=== PATIENT | female | born 1975 | race Caucasian/White ===

== ENCOUNTER → 2016-04-11 | Outpatient (CLI) | payer BC ==
--- NOTE | 2016-04-11 12:22 | KCIC ---
Bilateral digital diagnostic mammograms with CAD: HISTORY Followup nodules. COMPARISON Comparison is made to previous examinations dated back to 03/26/2013. FINDINGS Breast density category D. The skin and nipples show no abnormalities. No abnormal lymph nodes are seen in the axilla. The breast parenchyma is extremely dense. There continues to be some parenchymal asymmetry in the region of the left axillary tail of Gross which has not changed. There are no new dominant masses, suspicious calcifications or architectural distortions. IMPRESSION No evidence of malignancy. Ultrasound to follow. This study was interpreted with the benefit of Computerized Aided Detection (CAD). Mammography is not 100% sensitive in detecting breast cancer. Therefore, a self breast exam and a clinical breast exam are very important. A negative mammogram does not negate a clinically suspicious finding and should not result in a delay in biopsying a clinically suspicious abnormality. BI-RADS category 0: Incomplete. Ultrasound to follow. Left breast ultrasound: Comparison is made to previous study dated 11/10/2015. Ultrasound examination was performed of the left breast and axilla. There continue to be some benign cystic lesions in the 6 o'clock position 4 centimeters from the nipple and in the 7 o'clock position 3 centimeters from the nipple. There continues to be a hypoechoic circumscribed lesion in parallel orientation at the 2:30 position 4 centimeters from the nipple measuring 1.6 x 1.3 centimeters in size. In the 2:30 position 5.5 centimeters from the nipple, there is also a small 5.1 millimeter hypoechoic fibrocystic type lesion present. This also has a benign appearance. No suspicious appearing lesions are seen. No abnormal appearing lymph nodes are seen in the axilla. Impression: Continued presence of benign appearing cyst at the 6 o'clock and 7 o'clock positions. 1.6 centimeter hypoechoic nodule probably representing a fibroadenoma in the 2:30 position. New hypoechoic fibrocystic type lesion at the 2:30 position measuring 5.1 millimeters in size. Recommend 6 month sonographic followup. BI-RADS category 3: Probably benign. This patient's information has been entered into a reminder system for the patient to be notified with the results of this examination and a target date for her next mammograms. Electronically signed by: Ashlee Martínez MD (Apr 11, 2016 12:20:26)
== END | disposition home or self-care (01) ==
LOC: KCIC MAMMO 09:51
PROVIDERS: ATTEND Obstetrics & Gynecology
DX: R92.8 Other abnormal and inconclusive findings on diagnostic imaging of breast (principal); N63 Unspecified lump in breast
CPT/HCPCS: 76641; G0204; 77066

== ENCOUNTER → 2016-11-08 | Outpatient (CLI) | payer BC ==
--- NOTE | 2016-11-08 09:05 | RAD ---
Examination: Ultrasound left breast History: History of 6 month follow-up for cysts Comparison: 04/11/2016 Findings: There are multiple cystic structures identified at 6:00 and 7:00 position grossly similar to prior exam. The 1.6 cm hypoechoic nodule identified 2:30 position is similar in size compared to prior exam. Few dilated ducts identified in the retroareolar region. Impression: Unchanged nodule 2:30 position measuring 1.6 cm probably a fibroadenoma. Multiple cysts in the left breast are again noted. Probably benign findings BI-RADS Category 3. Recommend left breast ultrasound at time of mammogram in April,.
== END | disposition home or self-care (01) ==
LOC: KCIC US 07:59
PROVIDERS: ATTEND Obstetrics & Gynecology
DX: N63 Unspecified lump in breast (principal)
CPT/HCPCS: 76641

== ENCOUNTER → 2017-05-29 | Outpatient (CLI) | payer BC | END | disposition home or self-care (01) | LOC: KCIC MAMMO 08:49 | DX: N63.20 Unspecified lump in the left breast, unspecified quadrant (principal) | CPT/HCPCS: 76641; 77066; G0279 ==

== ENCOUNTER → 2017-12-23 | Outpatient (CLI) | payer BC ==
--- NOTE | 2017-12-23 13:06 | KCIC ---
Bilateral breast ultrasound: Reason for examination: Follow-up nodules. Comparison is made to previous right breast ultrasound dated 03/26/2013 and previous left breast ultrasounds dated back to 11/10/2015. Bilateral breast ultrasound including the retroareolar and axillary regions of both breasts was performed. The right breast continue show a 2 cm hypoechoic circumscribed lesion with posterior acoustic enhancement consistent with a complicated cyst. This has decreased in size. No other cystic or solid lesions are seen. No abnormal appearing lymph nodes are seen in the right axilla. The left breast continues to show a 1.4 cm hypoechoic lesion at the 2:30 position 4 cm from the nipple which is stable. This probably represents a fibroadenoma. There also is a 2.5 cm cyst at the 7:00 position 1 cm from the nipple with adjacent hypoechoic 3.7 and 4.7 mm lesions probably represent complicated cysts which are stable. There are no suspicious nodules seen. No abnormal appearing lymph nodes are seen in the left axilla. IMPRESSION: Continued presence of complicated cyst in the right breast which has decreased in size. Continued presence of a 1.4 cm nodule in the left breast at the 2:30 position consistent fibroadenoma which is stable. Cyst and hypoechoic lesions consistent with complicated cysts at the 7:00 position which are stable. Recommend routine mammographic follow-up. BI-RADS Category 2: Benign. "Our facility is accredited by the [employer] Mammography Program." This patient's information has been entered into a reminder system for the patient to be notified with the results of her examination and a target date for the next mammogram. Electronically signed by: Iman Martínez MD (12/23/2017 1:02 PM) [id number]
== END | disposition home or self-care (01) ==
LOC: KCIC US 10:40
PROVIDERS: ATTEND Obstetrics & Gynecology
DX: N63.21 Unspecified lump in the left breast, upper outer quadrant (principal)
CPT/HCPCS: 76641

== ENCOUNTER → 2018-07-21 | Outpatient (CLI) | payer BC ==
--- NOTE | 2018-07-22 08:19 | KCIC ---
BILATERAL SCREENING MAMMOGRAM, 3-D History: Routine screening. Comparison: Bilateral mammogram May 29, 2017. Bilateral breast ultrasound December 23, 2017. Technique: MLO and CC digital tomosynthesis (3D) images obtained. Radiologist reviewed these images on dedicated workstation. Findings: Breast Tissue Density D :The breasts are extremely dense, which lowers the sensitivity of mammography. There is a mass in the subareolar right breast 12:00 position, previously noted to be a complicated cyst, that has decreased in size. Mass in the left breast 2:30 o'clock position is unchanged, by ultrasound probably a fibroadenoma. Mass in the subareolar left breast 7:00 position, by ultrasound likely a complicated cyst, has decreased in size. There are no suspicious microcalcifications or architectural distortion. IMPRESSION: No mammographic evidence of malignancy. Recommend routine screening. BI-RADS category 2: Benign findings. The images were reviewed with computer-aided detection. Patient information is entered into reminder system with a target due date for the next screening mammogram. Mammography is the most sensitive method for finding small breast cancers, but it does not detect them all and is not a substitute for careful clinical examination. A negative mammogram does not negate a clinically suspicious finding and should not result in delay in biopsying a clinically suspicious abnormality. "Our facility is accredited by the [employer] Mammography Program." Electronically signed by: Ponce Talavera MD (07/22/2018 8:17 AM) [id number]
== END | disposition home or self-care (01) ==
LOC: KCIC MAMMO 15:07
PROVIDERS: ATTEND Obstetrics & Gynecology
DX: Z12.31 Encounter for screening mammogram for malignant neoplasm of breast (principal); N63.21 Unspecified lump in the left breast, upper outer quadrant; N63.24 Unspecified lump in the left breast, lower inner quadrant; N63.12 Unspecified lump in the right breast, upper inner quadrant
CPT/HCPCS: 77063; 77067

== ENCOUNTER → 2019-10-27 | Outpatient (CLI) | payer BC ==
--- NOTE | 2019-10-27 11:18 | KCIC ---
EXAM: Bilateral digital screening mammogram with tomosynthesis. HISTORY: 44-year-old female presents for screening mammography. TECHNIQUE: Full-field digital craniocaudal and mediolateral oblique 2D and 3D tomosynthesis images of both breasts are obtained for evaluation. Computer aided detection with edupristineD software version 9.3 was applied. COMPARISON: 07/21/2018 BREAST PARENCHYMAL DENSITY: Level D - Extremely dense. FINDINGS: There is no new suspicious mass, microcalcification or region of architectural distortion. There has been continued interval decrease in a previously demonstrated cyst within the 12:00 subareolar right breast. There are stable areas of benign nodularity within the subareolar and 2:30 positions of the left breast, also previously characterized with sonography. There are few punctate benign calcifications. IMPRESSION: BI-RADS Category 2: Benign finding(s). RECOMMENDATION: Annual mammography is recommended. If your mammogram demonstrates that you have dense breast tissue, which could hide abnormalities, and if you have other risk factors for breast cancer that have been identified, you might benefit from supplemental screening tests that may be suggested by your ordering physician. Dense breast tissue, in and of itself, is a relatively common condition. This information is not provided to cause undue concern, but rather to raise your awareness and to promote discussion with your physician regarding the presence of other risk factors, in addition to dense breast tissue. A report of your mammography results will be sent to you and your physician. You should contact your physician if you have any questions or concerns regarding this report. Mammography is a sensitive method for finding small breast cancers, but it does not detect them all and is not a substitute for careful clinical examination. A negative mammogram does not negate a clinically suspicious finding and should not result in delay in biopsying a clinically suspicious abnormality. PQRS compliance statement - Patient information was entered into a reminder system with a target due date for the next mammogram. "Our facility is accredited by the [employer] Mammography Program." Electronically signed by: Yun Brown MD (10/27/2019 11:15 AM) [email or web address]
== END | disposition home or self-care (01) ==
LOC: KCIC MAMMO 08:25
PROVIDERS: ATTEND Internal Medicine
DX: Z12.31 Encounter for screening mammogram for malignant neoplasm of breast (principal); N64.89 Other specified disorders of breast
CPT/HCPCS: 77063; 77067

== ENCOUNTER → 2020-11-17 | Outpatient (CLI) | payer BC ==
--- NOTE | 2020-11-18 08:23 | KCIC ---
Bilateral digital screening 2-D and 3-D (tomosynthesis) mammogram: Reason for examination: Routine screening. Comparison is made to previous mammograms dated 10/27/2019 and 07/21/2018. Correlation is made with the rest ultrasound from 12/23/2017. Bilateral mammograms in CC and oblique projections were obtained with 2-D imaging and 3-D tomosynthes is imaging and reviewed on the workstation. Interpretation was made with the benefit of CAD. Findings: Breast density: Category D. The breasts are extremely dense which lowers sensitivity of mammography. In the left breast and of the 2:30 position, 4 cm from the nipple, there is a 1.7 cm mass. This may c orrelate with the probable fibroadenoma seen on the 2018 ultrasound, but it is measuring larger. No o ther dominant breast mass is seen. There are no malignant appearing calcifications or architectural d istortion. Impression: Mass in the 2:30 position of the left breast, 4 cm from the nipple. This probably correlates with the likely fibroadenoma seen on 2018 ultrasound, but it has increased in size. Further evaluation with t argeted left breast ultrasound is recommended. ASSESSMENT: BI-RADS 0. Incomplete. Additional imaging is recommended. Recommendations: Targeted left breast ultrasound. The patient will be contacted with results and scheduled for additional imaging. This patient's infor mation has been entered into a reminder system for the patient to be notified with the results of her examination and a target date for the next mammogram. Your patient's mammogram demonstrates that she has dense breast tissue (breast density category C or D), which could hide abnormalities, and if she has other risk factors for breast cancer that have bee n identified, she might benefit from supplemental screening tests that may be suggested by you as her ordering physician. Dense breast tissue, in and of itself, is a relatively common condition. Therefo re, this information is not provided to cause undue concern, but rather to raise your awareness and t o promote discussion with your patient regarding the presence of other risk factors, in addition to d ense breast tissue. Electronically signed by: Katrin Ashley MD (11/18/2020 8:21 AM) [email or web address]
== END ==
LOC: KCIC MAMMO 12:50
PROVIDERS: ATTEND Obstetrics & Gynecology
DX: Z12.31 Encounter for screening mammogram for malignant neoplasm of breast (principal)
CPT/HCPCS: 77063; 77067

== ENCOUNTER → 2020-11-30 | Outpatient (CLI) | payer BC ==
--- NOTE | 2020-11-30 14:30 | KCIC ---
Bilateral breast ultrasound: Reason for examination: Dense breast parenchyma with enlarging nodule in the left breast mammographic ally. Comparison is made to mammographic exam dated 11/17/2020 and previous ultrasound examinations dated and 11/10/2015. Bilateral whole breast ultrasound including evaluation of all 4 quadrants and the retroareolar and ax illary regions of both breasts was performed. The right breast shows some ductal ectasia. No focal cystic or solid nodules are seen. No abnormal ap pearing lymph nodes are seen in the right axilla. In the left breast at the 2:30 position 4 cm from the nipple, there is a 1.7 x 1.5 x 0.8 cm mass pres ent with a bilobed contour. This has increased in size since previous exam. This may represent a fibr oadenoma however with the interval increase in size and bilobed appearance, this could reflect loosen ing or adjacent malignancy. Further evaluation with ultrasound-guided biopsy is recommended. Also pre sent are small cysts in the retroareolar position with ductal ectasia present. No abnormal appearing lymph nodes are seen in the left axilla. IMPRESSION: 1.7 x 1.5 x 0.8 cm lobulated mass at the 2:30 position of the left breast which shows interval increa se in size. Further evaluation with ultrasound-guided biopsy is recommended. BI-RADS Category 4: Suspicious. The findings have been discussed with the patient and a nurse at the office of Dr. Bowles was notifie d about these findings at 3:27 PM on 11/30/2020. "Our facility is accredited by the [employer] Mammography Program." This patient's information has been entered into a reminder system for the patient to be notified wit h the results of her examination and a target date for the next mammogram. Electronically signed by: Iman Matrínez MD (11/30/2020 2:28 PM) [email or web address]
== END ==
LOC: KCIC US 12:38
PROVIDERS: ATTEND Obstetrics & Gynecology
DX: N63.21 Unspecified lump in the left breast, upper outer quadrant (principal); R92.2 Inconclusive mammogram; N60.41 Mammary duct ectasia of right breast
CPT/HCPCS: 76641